=== PATIENT | male | born 1995 | race Caucasian/White ===

== ENCOUNTER 2018-12-31 16:40 | Emergency (ER) | payer OTHER ==
--- NOTE | 2018-12-31 16:47 | PDOC ---
Rapid Medical Evaluation Chief Complaint: Blood Pressure Problem Time Seen by Provider: 12/31/18 16:44 Medical Evaluation: Allergies Allergy/AdvReac Type Severity Reaction Status Date / Time No Known Allergies Allergy Verified 12/31/18 16:44 12/31/18 16:44 I have performed a brief in-person evaluation of this patient. The patient presents with a chief complaint of: SOB since Saturday, saw cards MD Reyes and put on holter monitor, told if he had any more issues to come to ED Pertinent physical exam findings: well appearing, VSS I have ordered the following: ekg, cxr The patient will proceed to the ED for further evaluation. \
[2018-12-31 16:48] VITALS: BMI 24.5
[2018-12-31 17:56] VITALS: BP 118/74; PULSE 77
--- NOTE | 2018-12-31 18:00 | PDOC ---
History of Present Illness - General Chief Complaint: Shortness of Breath Stated Complaint: HIGH BLOOD PRESURE Time Seen by Provider: 12/31/18 16:44 History Source: Patient Exam Limitations: No Limitations - History of Present Illness Initial Comments: 12/31/18 18:35 23 year old man with no past medical history who presents to the ED worsening L sided chest pain that has been ongoing for the past month and associated with shortness of breath, palpitations and dizziness. The patient reports that the symptosm worsen at night and when he lies back. He reports the last episode occurring just prior to arrival. He follows with Cardiology Dr. Reyes and was sent home with a Holter monitor with a follow up appointment tomorrow morning. The patient denies recent travel, coughing, brown or yellow phlegm, fevers, abdominal pain, dysuria, hematuria, diarrhea, constipation. Mother denies any complications at and notes patient was born full term in [facility] and did not require a hospital stay. Past History - Past Medical History Allergies/Adverse Reactions: Allergies Allergy/AdvReac Type Severity Reaction Status Date / Time No Known Allergies Allergy Verified 12/31/18 16:44 Home Medications: Ambulatory Orders NK [No Known Home Medication] 12/31/18 COPD: No - Surgical History Appendectomy: Yes - Immunization History Immunization Up to Date: Yes - Suicide/Smoking/Psychosocial Hx Smoking History: Never smoked Information on smoking cessation initiated: No Hx Alcohol Use: No Drug/Substance Use Hx: No Review of Systems - Review of Systems Able to Perform ROS?: Yes Comments:: 12/31/18 18:41 GENERAL/CONSTITUTIONAL: No fever or chills. No weakness. HEAD, EYES, EARS, NOSE AND THROAT: No change in vision. No ear pain or discharge. No sore throat. CARDIOVASCULAR: + chest pain or shortness of breath RESPIRATORY: No cough, wheezing, or hemoptysis. GASTROINTESTINAL: No nausea, vomiting, diarrhea or constipation. GENITOURINARY: No dysuria, frequency, or change in urination. MUSCULOSKELETAL: No joint or muscle swelling or pain. No neck or back pain. SKIN: No rash NEUROLOGIC: No headache, vertigo, loss of consciousness, or change in strength/ sensation. ENDOCRINE: No increased thirst. No abnormal weight change HEMATOLOGIC/LYMPHATIC: No anemia, easy bleeding, or history of blood clots. ALLERGIC/IMMUNOLOGIC: No hives or skin allergy. Is the patient limited Gambian proficient: No *Physical Exam - Vital Signs Last Vital Signs Temp Pulse Resp BP Pulse Ox 77 18 118/74 100 12/31/18 17:55 12/31/18 17:55 12/31/18 17:55 12/31/18 17:55 - Physical Exam Comments: 12/31/18 18:41 GENERAL: Awake, alert, and fully oriented, in no acute distress HEAD: No signs of trauma, normocephalic, atraumatic EYES: EOMI, sclera anicteric, conjunctiva clear ENT: oropharynx clear without exudates. Moist mucosa NECK: Normal ROM, supple LUNGS: No distress, speaks full sentences, clear to auscultation bilaterally HEART: Regular rate and rhythm, normal S1 and S2, no murmurs, rubs or gallops, peripheral pulses normal and equal bilaterally. ABDOMEN: Soft, nontender, normoactive bowel sounds. No guarding, no rebound. No masses EXTREMITIES : Normal inspection, Normal range of motion, no edema. No clubbing or cyanosis. NEUROLOGICAL: Cranial nerves II through XII grossly intact. Normal speech, no focal sensorimotor deficits SKIN: Warm, Dry, normal turgor, no rashes or lesions noted ED Treatment Course - LABORATORY CBC & Chemistry Diagram: 12/31/18 18:34 12/31/18 18:34 Medical Decision Making - Medical Decision Making 12/31/18 18:39 23 year old man with no past medical history who presents to the ED worsening L sided chest pain that has been ongoing for the past month and associated with shortness of breath, palpitations and dizziness. The patient reports that the symptosm worsen at night and when he lies back. He reports the last episode occurring just prior to arrival. He follows with Cardiology Dr. Reyes and was sent home with a Holter monitor with a follow up appointment tomorrow morning. The patient denies recent travel, coughing, brown or yellow phlegm, fevers, abdominal pain, dysuria, hematuria, diarrhea, constipation. Mother denies any complications at and notes patient was born full term in [facility] and did not require a hospital stay. ED Course: consider arrythmia vs anxiety vs hyperthyroid less liekly acs will r/o cbc, cmp, trop ekg, cxr EKG: normal sinus rhythm HR 59, no interval abnormalities, narrow QRS, ST and T wave segments and morphology normal. Shira Neil, PGY1 Emergency Medicine
[2018-12-31 18:44] LABS: BASO % 1.1 % (0-2.0); EOS % 1.7 % (0-4.5); HEMATOCRIT 47.3 % (35.4-49); HEMOGLOBIN 15.5 GM/dL (11.7-16.9); LYMPH % 45.6 % (8-40); MCH 28.6 pg (25.7-33.7); MCHC 32.8 g/dl (32.0-35.9); MEAN CELL VOLUME 87.1 fl (80-96); MEAN PLT VOLUME 8.7 fl (7.5-11.1); NEUT % 44.6 % (42.8-82.8); PLATELET COUNT 248 K/MM3 (134-434); RBC 5.43 M/mm3 (4.00-5.60); RDW 13.7 % (11.9-15.9); WHITE BLOOD COUNT 4.7 K/mm3 (4.0-10.0)
--- NOTE | 2018-12-31 19:06 | PDOC ---
Documentation entered by Carrie Durand SCRIBE, acting as scribe for Aida Ramirez DO. Aida Ramirez DO: This documentation has been prepared by the Kizzy crook Daisy, SCRIBE, under my direction and personally reviewed by me in its entirety. I confirm that the documentation accurately reflects all work, treatment, procedures, and medical decision making performed by me. Attending Attestation - Resident Resident Name: UlisespeeweedionneShira - ED Attending Attestation I have performed the following: I have examined & evaluated the patient, The case was reviewed & discussed with the resident, I agree w/resident's findings & plan - HPI HPI: 12/31/18 18:27 The patient is a 23 YOM with no PMH who presents to the ED for left sided chest pain. He reports the chest pain is sharp, localized in the left side of his chest, nonradiating, intermittent, and occurs at rest. He reports the chest pain makes him intermittently short of breath and dizzy. Denies worsening chest pain with deep inspiration. Patient has seen cardiology in the past and has a follow-up appointment tomorrow. Denies fever, chills, N/V/D/C, urinary symptoms. Allergies: NKDA Cardiology: Dr. Reyes - Physicial Exam PE: 12/31/18 18:30 ADULT PHYSICAL EXAM Constitutional: Awake, alert, oriented. No acute distress. Neck: Supple. Full ROM. No lymphadenopathy. Cardiovascular: Regular rate. Regular rhythm. S1, S2 regular. Distal pulses are 2+ and symmetric. Pulmonary/Chest: No evidence of respiratory distress. Clear to auscultation bilaterally No wheezing, rales or rhonchi. Abdominal: Soft and non-distended. There is no tenderness. No rebound, guarding or rigidity. Musculoskeletal: No edema. No cyanosis. No clubbing. Full range of motion in all extremities. No calf tenderness. Skin: Skin is warm and dry. Neurological: No focal deficits. - Medical Decision Making 12/31/18 19:03 I, Dr. Aida Ramirez DO, attest that this document has been prepared under my direction and personally reviewed by me in its entirety. I further attest, that it accurately reflects all work, treatment, procedures and medical decision -making performed by me. 12/31/18 19:03 a/p: 23yo male with 1m hx of intermittent episodes of cp -scheduled to see Dr. Reyes tomorrow for a halter -cp assoc with sob/palp -no pleuritic component -PERC neg -pt denies pain at this time -cxr clear -ekg nonacute -will send labs, tsh -most likely dc home with cards follow up tomorrow 12/31/18 19:28 trop negative tsh normal discussed labs, ekg, cxr with pt and his mother cp free stable for dc to home and follow up with cards in the am *DC/Admit/Observation/Transfer Diagnosis at time of Disposition: Palpitation, Atypical chest pain - Discharge Dispostion Disposition: HOME Condition at time of disposition: Stable Decision to Admit order: No - Referrals Referrals: Haseeb Reyes MD [Staff Physician] - - Patient Instructions Printed Discharge Instructions: DI for Palpitations, DI for Atypical Chest Pain Additional Instructions: Please follow up with Dr. Reyes in the AM as scheduled. Please return to the ED with any further concerns or complaints. - Post Discharge Activity Heart Score/ECG Review - ECG Intrepretation Comment:: 12/31/18 19:05 sinus vitor at 59, nl axis, nl interval, no acute st/t wave findings
--- NOTE | 2018-12-31 19:09 | PDOC ---
*Physical Exam - Vital Signs Last Vital Signs Temp Pulse Resp BP Pulse Ox 77 18 118/74 100 12/31/18 17:55 12/31/18 17:55 12/31/18 17:55 12/31/18 18:34 ED Treatment Course - LABORATORY CBC & Chemistry Diagram: 12/31/18 18:34 12/31/18 18:34 - ADDITIONAL ORDERS Additional order review: 12/31/18 18:34 RBC 5.43 MCV 87.1 MCHC 32.8 RDW 13.7 MPV 8.7 Neutrophils % 44.6 Lymphocytes % 45.6 H Monocytes % 7.0 Eosinophils % 1.7 Basophils % 1.1
[2018-12-31 19:18] LABS: ALK PHOS 54 U/L (45-117); ANION GAP 5 MMOL/L (8-16); BILIRUBIN,TOTAL 0.3 mg/dL (0.2-1); BLOOD UREA NITROGEN 11 mg/dL (7-18); CHLORIDE 106 mmol/L (98-107); CO2 28 mmol/L (21-32); CREATININE 1.1 mg/dL (0.55-1.3); GLUCOSE,RANDOM 84 mg/dL (74-106); SGOT/AST 22 U/L (15-37); SGPT/ALT 39 U/L (13-61); SODIUM 139 mmol/L (136-145); TOT PROT 7.7 g/dl (6.4-8.2)
--- NOTE | 2019-01-01 13:14 | EKG ---
Test Reason : Blood Pressure : / mmHG Vent. Rate : 059 BPM Atrial Rate : 059 BPM P-R Int : 148 ms QRS Dur : 090 ms QT Int : 376 ms P-R-T Axes : 063 064 043 degrees QTc Int : 372 ms SINUS BRADYCARDIA OTHERWISE NORMAL ECG WHEN COMPARED WITH ECG OF 19-MAR-2016 13:21, NO SIGNIFICANT CHANGE WAS FOUND Confirmed by SELINA SRINIVASAN MD ([id number]) on 01/01/2019 1:14:27 PM Referred By: Confirmed By:SELINA SRINIVASAN MD
== END 2018-12-31 19:45 | disposition home or self-care (01) ==
LOC: JER 16:40
DX: R07.9 Chest pain, unspecified (principal); R00.2 Palpitations
CPT/HCPCS: 36415; 71046-TC-FY; 80053; 84443; 84484; 85025; 93005; 93010; 99283-25

== ENCOUNTER 2019-01-12 18:03 | Emergency (ER) | payer OTHER ==
[2019-01-12 18:27] VITALS: BP 131/85; PULSE 75; TEMP 98.6; BMI 25.2
--- NOTE | 2019-01-12 18:27 | PDOC ---
Rapid Medical Evaluation Chief Complaint: Palpitations Time Seen by Provider: 01/12/19 18:25 Medical Evaluation: Allergies Allergy/AdvReac Type Severity Reaction Status Date / Time No Known Allergies Allergy Verified 12/31/18 16:44 Vital Signs Temp Pulse Resp BP Pulse Ox 98.6 F 75 20 131/85 100 01/12/19 18:22 01/12/19 18:22 01/12/19 18:22 01/12/19 18:22 01/12/19 18:22 01/12/19 18:25 cc; palpitations intermittently x 2 days + weakness and dizziness at present Pe: nad unlabored breathing heart s1s2 order ekg This patient will proceed to ed for further evaluation Discharge Disposition - Diagnosis Palpitation - Discharge Dispostion Condition at time of disposition: Stable - Referrals - Patient Instructions - Post Discharge Activity
--- NOTE | 2019-01-12 19:24 | PDOC ---
*Physical Exam - Vital Signs Last Vital Signs Temp Pulse Resp BP Pulse Ox 98.6 F 75 20 131/85 100 01/12/19 18:22 01/12/19 18:22 01/12/19 18:22 01/12/19 18:22 01/12/19 18:22 ED Treatment Course - LABORATORY CBC & Chemistry Diagram: 01/12/19 19:45 01/12/19 19:30 Medical Decision Making - Medical Decision Making 01/12/19 19:24 Patient seen by the advanced practice provider under my direct supervision. Ancillary testing reviewed as necessary. I agree with plan as outlined by the advanced practice provider. *DC/Admit/Observation/Transfer Diagnosis at time of Disposition: Palpitation - Discharge Dispostion Condition at time of disposition: Stable - Referrals Referrals: Nicolle Sanchez [Primary Care Provider] - - Patient Instructions - Post Discharge Activity
[2019-01-12] MEDS ORDERED: SODIUM CHLORIDE 1,000 ML IV STA (19:31)
--- NOTE | 2019-01-12 19:37 | PDOC ---
History of Present Illness - General Chief Complaint: Palpitations Stated Complaint: CHEST PAIN Time Seen by Provider: 01/12/19 18:25 History Source: Patient Exam Limitations: No Limitations - History of Present Illness Initial Comments: 01/12/19 19:33 HISTORY OF PRESENT ILLNESS: 23-year-old male presents emergency department for evaluation of palpitations which have been intermittent since 01/09. Patient reports alcohol intake over this weekend and the symptoms had resolved. Palpitations returned again approximate 4:00 this morning which woke the patient from sleep. Patient reported symptoms resolve when he went to work started eating and drinking fluids. While at work he felt fine and his symptoms improved after excessive hydration. I present patient denies any chest pain, palpitations, shortness of breath, dizziness, lightheadedness, nausea, vomiting or abdominal pain. No recent travel or sick contacts. PAST MEDICAL HISTORY: Denies past medical history SURGICAL HISTORY: Denies ALLERGIES: No known drug allergies REVIEW OF SYSTEMS General/Constitutional: Denies fever or chills. Denies weakness, weight change. HEENT: Denies change in vision. Denies ear pain or discharge. Denies sore throat. Cardiovascular: see HPI Respiratory: Denies cough, wheezing, or hemoptysis. Gastrointestinal: Denies nausea, vomiting, diarrhea or constipation. Denies rectal bleeding. Genitourinary: Denies dysuria, frequency, or change in urination. Musculoskeletal: Denies joint or muscle swelling or pain. Denies neck or back pain. Skin and breasts: Denies rash or easy bruising. Neurologic: Denies headache, vertigo, loss of consciousness, or loss of sensation. Psychiatric: Denies depression or anxiety. Endocrine: Denies increased thirst. Denies abnormal weight change. Hematologic/Lymphatic: Denies anemia, easy bleeding, or history of blood clots. Allergic/Immunologic: Denies hives or skin allergy. Denies latex allergy. PHYSICAL EXAM General Appearance: Well-appearing, appropriately dressed. No apparent distress , no intoxication. HEENT: EOMI, PERRLA, normal ENT inspection, normal voice, TMs normal, pharynx normal. No conjunctival pallor. No photophobia, scleral icterus. Neck: Supple. Trachea midline. No tenderness, rigidity, carotid bruit, stridor , lymphadenopathy, or thyromegaly. Respiratory/Chest: Lungs CTAB. No shortness of breath, chest tenderness, respiratory distress, accessory muscle use. No crackles, rales, rhonchi, stridor , wheezing, dullness Cardiovascular: RRR. S1, S2. No JVD, murmur, bradycardia, tachycardia. Vascular Pulses: Dorsalis-Pedis (R): 2+, Dorsalis-Pedis (L): 2+ Gastrointestinal/Abdominal: Normal bowel sounds. Abdomen soft, non-distended. No tenderness or rebound tenderness. No organomegaly, pulsatile mass, guarding, hernia, hepatomegaly, splenomegaly. Lymphatic: No adenopathy, tenderness. Musculoskeletal/Extremities: Normal inspection. FROM of all extremities, normal capillary refill. Pelvis Stable. No CVA tenderness. No tenderness to extremities, pedal edema, swelling, erythema or deformity. Integumentary: Appropriate color, dry, warm. No cyanosis, erythema, jaundice or rash Neurologic: transportation logistics internship II-XII intact. Fully oriented, alert. Appropriate mood/affect. Motor strength 5/5. No appreciable EOM palsy, facial droop or sensory deficit. Past History - Past Medical History Allergies/Adverse Reactions: Allergies Allergy/AdvReac Type Severity Reaction Status Date / Time No Known Allergies Allergy Verified 12/31/18 16:44 Home Medications: Ambulatory Orders NK [No Known Home Medication] 12/31/18 COPD: No - Surgical History Abdominal Surgery: Yes Appendectomy: Yes - Immunization History Immunization Up to Date: Yes - Suicide/Smoking/Psychosocial Hx Smoking History: Current some day smoker Have you smoked in the past 12 months: Yes Information on smoking cessation initiated: No Hx Alcohol Use: No Drug/Substance Use Hx: No *Physical Exam - Vital Signs Last Vital Signs Temp Pulse Resp BP Pulse Ox 98.6 F 75 20 131/85 100 01/12/19 18:22 01/12/19 18:22 01/12/19 18:22 01/12/19 18:22 01/12/19 18:22 ED Treatment Course - LABORATORY CBC & Chemistry Diagram: 01/12/19 19:45 01/12/19 19:30 - RADIOLOGY Radiology Studies Ordered: Category Date Time Status CHEST PA & LAT [RAD] Stat Radiology 01/12/19 19:31 Ordered Medical Decision Making - Medical Decision Making 01/12/19 19:34 A/P: 23-year-old male with intermittent resolved palpitations for 3 days Physical exam is within normal limits Differential diagnosis includes but is not limited to- ACS, arrhythmia, hypoglycemia, electrolyte imbalance, thyroid dysfunction, toxicology, occult infection. Pulmonary embolism is less likely as patient has a PERC score of 0. Labs included cardiac profile and is TSH Urine including toxicology CXR Normal saline 1 L bolus EKG performed in rapid medical evaluation reveals sinus rhythm with rate of 69. Normal intervals present. Normal axis noted. No ST depressions or elevations present. 01/12/19 22:16 CBC is unremarkable Chemistry is remarkable for TSH of 4.13. Free T4 is 1.01. Likely subclinical. Cardiac enzymes are negative. Urinalysis is negative Chest x-rays read by me: No acute pathology present. No significant change from study performed on 12/31/18. I will discharge the patient home to follow-up with [facility] internal medicine group. I discussed the physical exam findings, ancillary test results and final diagnoses with the patient. I answered all of the patient's questions. The patient was satisfied with the care received and felt comfortable with the discharge plan and treatment plan. The patient will call their primary care physician within 24 hours to arrange follow-up and will return to the Emergency Department with any new, persistent or worsening symptoms. *DC/Admit/Observation/Transfer Diagnosis at time of Disposition: Palpitation - Discharge Dispostion Disposition: HOME Condition at time of disposition: Stable Decision to Admit order: No - Referrals Referrals: Nicolle Sanchez [Primary Care Provider] - - Patient Instructions Additional Instructions: Your TSH was 4.13. Your T4 is 1.01. Keep well-hydrated Eat a well-balanced diet. Your emergency department visit is incomplete until you follow up with your primary doctor with your doctor. Return to the emergency department for any new or worsening symptoms. Thank you very much for choosing us to provide written emergent health care needs. - Post Discharge Activity
[2019-01-12 20:07] LABS: BASO % 0.9 % (0-2.0); EOS % 0.9 % (0-4.5); HEMATOCRIT 48.1 % (35.4-49); LYMPH % 27.3 % (8-40); MCH 28.7 pg (25.7-33.7); MCHC 33.3 g/dl (32.0-35.9); MEAN CELL VOLUME 86.2 fl (80-96); MEAN PLT VOLUME 9.4 fl (7.5-11.1); MONO % 8.5 % (3.8-10.2); NEUT % 62.4 % (42.8-82.8); PLATELET COUNT 248 K/MM3 (134-434); RBC 5.58 M/mm3 (4.00-5.60); RDW 13.5 % (11.9-15.9); WHITE BLOOD COUNT 5.2 K/mm3 (4.0-10.0)
[2019-01-12 20:27] LABS: URINE APPEARANCE CLEAR; URINE BILIRUBIN NEGATIVE (NEGATIVE); URINE COLOR YELLOW; URINE GLUCOSE (UA) NEGATIVE (NEGATIVE); URINE KETONE NEGATIVE (NEGATIVE); URINE LEUK ESTERASE NEGATIVE (NEGATIVE); URINE NITRITE NEGATIVE (NEGATIVE); URINE PROTEIN NEGATIVE (NEGATIVE); URINE UROBILINOGEN 0.2 mg/dL (0.2-1.0)
[2019-01-12 20:43] LABS: ALBUMIN 4.4 g/dl (3.4-5.0); ALK PHOS 63 U/L (45-117); ANION GAP 7 MMOL/L (8-16); BILIRUBIN,TOTAL 0.3 mg/dL (0.2-1); BLOOD UREA NITROGEN 18 mg/dL (7-18); CALCIUM 9.3 mg/dL (8.5-10.1); CHLORIDE 104 mmol/L (98-107); CO2 28 mmol/L (21-32); CREATININE 1.3 mg/dL (0.55-1.3); GLUCOSE,RANDOM 94 mg/dL (74-106); MAGNESIUM 2.3 mg/dL (1.8-2.4); POTASSIUM 4.5 mmol/L (3.5-5.1); SGOT/AST 20 U/L (15-37); SGPT/ALT 31 U/L (13-61); SODIUM 138 mmol/L (136-145); TOT PROT 8.5 g/dl (6.4-8.2)
[2019-01-12 21:34] LABS: COCAINE, UR NEGATIVE ng/ml (CUTOFF=300); METHADONE, UR NEGATIVE ng/ml (CUTOFF=300); OPIATES, URI NEGATIVE ng/ml (CUTOFF=300); PHENCYCLIDINE,URINE NEGATIVE ng/ml (CUTOFF=25); URINE AMPHETAMINES NEGATIVE ng/ml (CUTOFF=500); URINE BARBITURATES NEGATIVE ng/ml (CUTOFF=200); URINE BENZODIAZEPINES NEGATIVE ng/ml (CUTOFF=200)
--- NOTE | 2019-01-13 10:02 | EKG ---
Test Reason : Blood Pressure : / mmHG Vent. Rate : 069 BPM Atrial Rate : 069 BPM P-R Int : 144 ms QRS Dur : 092 ms QT Int : 376 ms P-R-T Axes : 070 059 022 degrees QTc Int : 402 ms NORMAL SINUS RHYTHM MINIMAL VOLTAGE CRITERIA FOR LVH, MAY BE NORMAL VARIANT BORDERLINE ECG WHEN COMPARED WITH ECG OF 31-DEC-2018 16:51, NO SIGNIFICANT CHANGE WAS FOUND Confirmed by MD VENANCIO, SAURABH ([id number]) on 01/13/2019 10:01:26 AM Referred By: Confirmed By:SAURABH CRFAT MD
== END 2019-01-12 22:25 | disposition home or self-care (01) ==
LOC: JER 18:03
PROC: 3E0337Z Introduction of Electrolytic and Water Balance Substance into Peripheral Vein, Percutaneous Approach (ICD-10-PCS; principal; 2019-01-12)
DX: R00.2 Palpitations (principal)
CPT/HCPCS: 36415; 71046-TC-FY; 80053; 80307; 81003; 82550; 82553; 83735; 84439; 84443; 84481; 84484; 85025; 93005; 93010; 96360; 99283-25; J7030

== ENCOUNTER 2019-01-27 21:18 | Emergency (ER) | payer OTHER ==
--- NOTE | 2019-01-27 21:25 | PDOC ---
Rapid Medical Evaluation Time Seen by Provider: 01/27/19 21:21 Medical Evaluation: Allergies Allergy/AdvReac Type Severity Reaction Status Date / Time No Known Allergies Allergy Verified 12/31/18 16:44 01/27/19 21:22 Pt c/o: headache, tired, no strength, seen her x 3 for the same Pt on brief exam: vss, lcta, rrr Pt ordered for: labs ( tsh also elevated on prev visit) Pt to proceed to the ED Discharge Disposition - Diagnosis Headache - Referrals - Patient Instructions - Post Discharge Activity
[2019-01-27 21:27] VITALS: BP 136/90; PULSE 63; TEMP 98.3; BMI 23.8
[2019-01-27] MEDS ORDERED: KETOROLAC TROMETHAMINE 60 MG/2 ML VIAL IM ONE (21:27)
[2019-01-27] MEDS ORDERED: KETOROLAC TROMETHAMINE 60 MG/2 ML VIAL ONE ×2 (21:30→22:19)
[2019-01-27 21:52] LABS: EOS % 1.7 % (0-4.5); HEMATOCRIT 45.2 % (35.4-49); HEMOGLOBIN 15.5 GM/dL (11.7-16.9); LYMPH % 54.7 % (8-40); MCH 29.2 pg (25.7-33.7); MCHC 34.4 g/dl (32.0-35.9); MEAN CELL VOLUME 84.9 fl (80-96); MEAN PLT VOLUME 8.4 fl (7.5-11.1); MONO % 7.2 % (3.8-10.2); NEUT % 35.4 % (42.8-82.8); PLATELET COUNT 217 K/MM3 (134-434); RBC 5.32 M/mm3 (4.00-5.60); RDW 13.2 % (11.9-15.9); WHITE BLOOD COUNT 6.4 K/mm3 (4.0-10.0)
[2019-01-27] MEDS ORDERED: ACETAMINOPHEN 500 MG TABLET (FP) PO STA (22:18)
[2019-01-27] MEDS ORDERED: ACETAMINOPHEN 325 MG TABLET (FP) ONE (22:34)
[2019-01-27 22:37] LABS: ALBUMIN 4.5 g/dl (3.4-5.0); ALK PHOS 63 U/L (45-117); ANION GAP 9 MMOL/L (8-16); BILIRUBIN,TOTAL 0.2 mg/dL (0.2-1); BLOOD UREA NITROGEN 18.8 mg/dL (7-18); CALCIUM 9.1 mg/dL (8.5-10.1); CHLORIDE 104 mmol/L (98-107); CO2 25 mmol/L (21-32); CREATININE 1.3 mg/dL (0.55-1.3); GLUCOSE,RANDOM 98 mg/dL (74-106); POTASSIUM 3.5 mmol/L (3.5-5.1); SGOT/AST 18 U/L (15-37); SGPT/ALT 31 U/L (13-61); SODIUM 138 mmol/L (136-145); TOT PROT 8.2 g/dl (6.4-8.2)
--- NOTE | 2019-01-27 23:38 | PDOC ---
Documentation entered by Denisse Wilson SCRIBE, acting as scribe for Karine Flowers MD. Karine Flowers MD: This documentation has been prepared by the Katie crook Brenda, SCRIBE, under my direction and personally reviewed by me in its entirety. I confirm that the documentation accurately reflects all work, treatment, procedures, and medical decision making performed by me. History of Present Illness - General Chief Complaint: Lightheaded Stated Complaint: DIZZY/LIGHT HEADED Time Seen by Provider: 01/27/19 21:21 History Source: Patient Exam Limitations: Language Barrier - History of Present Illness Initial Comments: 01/27/19 23:00 The patient is a 23 year old male, portuguese-speaker, with no significant PMH who presents to the emergency department with4 months of a head pressure accompanied with blurry vision. The patient reports feeling intermittent head pressure, mostly while at work, which causes vision blurriness. He also notes rapid palpitations. Patient states seeing his PCP on Saturday, who reported that his heart was good, and did not check his head pressure or vision. The patient also notes a cyst on the back of his scalp. The patient notes being prescribed an unknown anxiety medication, which he is noncompliant with due to not feeling a need. motor vehicle parts interpreter was used ([id number]). The patient denies stress and any past medical history. Denes chest pain, shortness of breath and headaches. Denies fever, chills, nausea, vomiting, diarrhea and constipation. Denies dysuria, frequency, urgency and hematuria. Allergies: NKA Surgical History: Appendectomy PCP: Ted Main Past History - Past Medical History Allergies/Adverse Reactions: Allergies Allergy/AdvReac Type Severity Reaction Status Date / Time No Known Allergies Allergy Verified 12/31/18 16:44 Home Medications: Ambulatory Orders NK [No Known Home Medication] 12/31/18 COPD: No - Surgical History Appendectomy: Yes - Immunization History Immunization Up to Date: Yes - Suicide/Smoking/Psychosocial Hx Smoking History: Never smoked Have you smoked in the past 12 months: No Information on smoking cessation initiated: No Hx Alcohol Use: No Drug/Substance Use Hx: No Review of Systems - Review of Systems Able to Perform ROS?: Yes Comments:: 01/27/19 23:00 CONSTITUTIONAL: Absent: fever, chills, diaphoresis, generalized weakness, malaise, loss of appetite HEENT: + Visual changes (blurry vision) Absent: rhinorrhea, nasal congestion, throat pain, throat swelling, difficulty swallowing, mouth swelling, ear pain. CARDIOVASCULAR: +Palpitations + headache Absent: chest pain, syncope, peripheral edema RESPIRATORY: Absent: cough, shortness of breath, dyspnea with exertion, orthopnea, wheezing, stridor, hemoptysis GASTROINTESTINAL: Absent: abdominal pain, abdominal distension, nausea, vomiting, diarrhea, constipation, melena, hematochezia GENITOURINARY: Absent: dysuria, frequency, urgency, hesitancy, hematuria, flank pain, genital pain MUSCULOSKELETAL: Absent: myalgia, arthralgia, joint swelling SKIN: Absent: rash, itching, pallor HEMATOLOGIC/IMMUNOLOGIC: Absent: easy bleeding, easy bruising, lymphadenopathy, frequent infections ENDOCRINE: Absent: unexplained weight gain, unexplained weight loss, heat intolerance, cold intolerance NEUROLOGIC: Absent: headache, focal weakness or paresthesias, dizziness, unsteady gait, seizure, mental status changes, bladder or bowel incontinence PSYCHIATRIC: Absent: anxiety, depression, suicidal or homicidal ideation, hallucinations. *Physical Exam - Vital Signs Last Vital Signs Temp Pulse Resp BP Pulse Ox 98.3 F 63 20 136/90 99 01/27/19 21:22 01/27/19 21:22 01/27/19 21:22 01/27/19 21:22 01/27/19 21:22 - Physical Exam Comments: 01/27/19 23:00 GENERAL: Well developed, well nourished. Awake and alert. No acute distress. HEENT: Normocephalic, atraumatic. PERRLA, EOMI. No conjunctival pallor. Sclera are non- icteric. Moist mucous membranes. Oropharynx is clear. NECK: Supple. Full ROM. No JVD. Carotid pulses 2+ and symmetric, without bruits. No thyromegaly. No lymphadenopathy. CARDIOVASCULAR: Regular rate and rhythm. No murmurs, rubs, or gallops. Distal pulses are 2+ and symmetric. PULMONARY: No evidence of respiratory distress. Lungs clear to auscultation bilaterally. No wheezing, rales or rhonchi. ABDOMINAL: Soft. Non-tender. Non-distended. No rebound or guarding. No organomegaly. Normoactive bowel sounds. MUSCULOSKELETAL Normal range of motion at all joints. No bony deformities or tenderness. No CVA tenderness. EXTREMITIES: No cyanosis. No clubbing. No edema. No calf tenderness. SKIN: Warm and dry. Normal capillary refill. No rashes. No jaundice. NEUROLOGICAL: Alert, awake, appropriate. Cranial nerves 2-12 intact. No deficits to light touch and temperature in face, upper extremities and lower extremities. No motor deficits in the face, upper extremities and lower extremities. Normoreflexic in the upper and lower extremities. Normal speech. Toes are down- going bilaterally. Gait is normal without ataxia. PSYCHIATRIC: Cooperative. Good eye contact. Appropriate mood and affect. ED Treatment Course - LABORATORY CBC & Chemistry Diagram: 01/27/19 21:37 01/27/19 21:37 - ADDITIONAL ORDERS Additional order review: 01/27/19 21:37 RBC 5.32 MCV 84.9 MCHC 34.4 RDW 13.2 MPV 8.4 D Neutrophils % 35.4 L D Lymphocytes % 54.7 H D Monocytes % 7.2 Eosinophils % 1.7 D Basophils % 1.0 - RADIOLOGY Radiology Studies Ordered: Category Date Time Status HEAD CT WITHOUT CONTRAST [CT] Stat CT Scan 01/27/19 22:36 Ordered - Medications Given in the ED: ED Medications Discontinued Medications Generic Name Dose Route Start Last Admin Trade Name Lara PRN Reason Stop Dose Admin Acetaminophen 975 mg 01/27/19 22:18 01/27/19 22:41 Tylenol - PO 01/27/19 22:19 975 mg ONCE STA Administration Ketorolac Tromethamine 60 mg 01/27/19 21:27 01/27/19 22:40 Toradol Injection - IM 01/27/19 21:28 60 mg ONCE ONE Administration Medical Decision Making - Medical Decision Making 01/27/19 22:46 23-year-old male presents with several complaints. He has been here on December 31 in January 12 for similar complaints. He presents with concerns of intermittent headache for the past 4 months and also intermittent palpitations. He's had negative workups on his prior visits. History of present illness he did see his primary care provider on Saturday and but at that time was just prescribed medications for anxiety. He did not bring up a request for a Holter monitor at that time nor did he talk about his chronic intermittent headaches with his doctor. -his PCP is Dr Ted Main Chest x-rays done on December 31 and January 12 showed a normal cardiac silhouette, no infiltrates, no effusions, no masses, no bony abnormalities and no hilar adenopathy. CBCs have been normal with no anemia or leukocytosis. His glucose and renal function and electrolytes have been normal. His troponin has been negative on previous visits. -an elevated TSH was noted on January 12 visit but his freeT3 and freeT4 were within normal range 01/27/19 23:32 CAT scan of the head was done because of this intermittent no intermittent headache for 4 months. CAT scan of the head was negative for any acute intracranial pathology. At this time. He does not have any significant headache and will be discharged home with neurology follow-up. Findings also discussed with his mother accompanied him to the emergency department IMP; palpitations/new intermittent headache for 4 months *DC/Admit/Observation/Transfer Diagnosis at time of Disposition: Palpitation Headache Qualifiers: Headache type: tension-type Headache chronicity pattern: episodic headache Intractability: not intractable Qualified Code(s): G44.219 - Episodic tension- type headache, not intractable - Discharge Dispostion Disposition: HOME Condition at time of disposition: Stable - Referrals Referrals: Ted Main MD [Primary Care Provider] - Willie Hernández MD [Staff Physician] - - Patient Instructions Printed Discharge Instructions: DI for Hormonal and Tension Headaches, DI for Palpitations Additional Instructions: please call your doctor for follow up and tell him about your headaches and palpitations You have been given the name of a neurologist to call and make an appointment for your headaches - Post Discharge Activity
--- NOTE | 2019-01-28 08:08 | EKG ---
Test Reason : Blood Pressure : / mmHG Vent. Rate : 061 BPM Atrial Rate : 061 BPM P-R Int : 160 ms QRS Dur : 100 ms QT Int : 390 ms P-R-T Axes : 042 051 020 degrees QTc Int : 392 ms NORMAL SINUS RHYTHM NORMAL ECG WHEN COMPARED WITH ECG OF 12-JAN-2019 17:56, NO SIGNIFICANT CHANGE WAS FOUND Confirmed by ROLA COLIN MD ([id number]) on 01/28/2019 8:07:36 AM Referred By: Confirmed By:ROLA COLIN MD
== END 2019-01-27 23:51 | disposition home or self-care (01) ==
LOC: JER 21:18
PROC: 3E0233Z Introduction of Anti-inflammatory into Muscle, Percutaneous Approach (ICD-10-PCS; principal; 2019-01-27)
DX: G44.219 Episodic tension-type headache, not intractable (principal); R00.2 Palpitations
CPT/HCPCS: 36415; 70450-TC; 80053; 84443; 84484; 85025; 93005; 93010; 96372; 99281-25

== ENCOUNTER 2019-09-17 18:36 | Emergency (ER) | payer OTHER ==
--- NOTE | 2019-09-17 18:51 | PDOC ---
Rapid Medical Evaluation Chief Complaint: Pain, Acute Time Seen by Provider: 09/17/19 18:46 Medical Evaluation: Allergies Allergy/AdvReac Type Severity Reaction Status Date / Time No Known Allergies Allergy Verified 12/31/18 16:44 09/17/19 18:47 I have performed a brief in-person evaluation of this patient. The patient presents with a chief complaint of:abdomenal pain x 1 month , worse over past 3 days. No N/V/ Fevers Pertinent physical exam findings: abd soft/ nontender. I have ordered the following: nothing The patient will proceed to the ED for further evaluation. Discharge Disposition - Diagnosis Abdominal pain - Discharge Dispostion Condition at time of disposition: Stable - Referrals - Patient Instructions - Post Discharge Activity
[2019-09-17 18:55] VITALS: BMI 25.7
[2019-09-17] MEDS ORDERED: ONDANSETRON 4 MG/2 ML VIAL IVPUSH ONE (19:32)
[2019-09-17] MEDS ORDERED: SODIUM CHLORIDE 1,000 ML IV STA (19:32)
[2019-09-17] MEDS ORDERED: ONDANSETRON 4 MG/2 ML VIAL ONE (20:20)
--- NOTE | 2019-09-17 20:26 | PDOC ---
History of Present Illness - General Chief Complaint: Pain, Acute Stated Complaint: ABD PAIN Time Seen by Provider: 09/17/19 18:46 History Source: Patient, Old Records Exam Limitations: No Limitations - History of Present Illness Travel History: No Initial Comments: 09/17/19 20:21 HISTORY OF PRESENT ILLNESS: 24-year-old male presents emergency department for evaluation of intermittent abdominal pain over the past 30 days. Patient reports the pain is epigastric in location. Patient is unable to describe quality of the pain but reports that the pain is "bad." Reports having intermittent nausea and is reporting retching at home. He had nonbilious nonbloody vomiting earlier today but has not vomited since coming to the hospital. He denies any chest pain, shortness of breath, dysuria, hematuria, flank pain, constipation or diarrhea. Patient reports he has not had alcohol since January 2019 secondary to some epigastric pain he had at that time. No recent travel or sick contacts. PAST MEDICAL HISTORY: Denies past medical history SURGICAL HISTORY: Denies ALLERGIES: No known drug allergies REVIEW OF SYSTEMS General/Constitutional: Denies fever or chills. Denies weakness, weight change. HEENT: Denies change in vision. Denies ear pain or discharge. Denies sore throat. Cardiovascular: Denies chest pain or shortness of breath. Respiratory: Denies cough, wheezing, or hemoptysis. Gastrointestinal: See HPI Genitourinary: Denies dysuria, frequency, or change in urination. Musculoskeletal: Denies joint or muscle swelling or pain. Denies neck or back pain. Skin and breasts: Denies rash or easy bruising. Neurologic: Denies headache, vertigo, loss of consciousness, or loss of sensation. Psychiatric: Denies depression or anxiety. Endocrine: Denies increased thirst. Denies abnormal weight change. Hematologic/Lymphatic: Denies anemia, easy bleeding, or history of blood clots. Allergic/Immunologic: Denies hives or skin allergy. Denies latex allergy. PHYSICAL EXAM General Appearance: Well-appearing, appropriately dressed. No apparent distress , no intoxication. Respiratory/Chest: Lungs CTAB. No shortness of breath, chest tenderness, respiratory distress, accessory muscle use. No crackles, rales, rhonchi, stridor , wheezing, dullness Cardiovascular: RRR. S1, S2. No JVD, murmur, bradycardia, tachycardia. Vascular Pulses: Dorsalis-Pedis (R): 2+, Dorsalis-Pedis (L): 2+ Gastrointestinal/Abdominal: Normal bowel sounds. Abdomen soft, non-distended. No tenderness or rebound tenderness. No organomegaly, pulsatile mass, guarding, hernia, hepatomegaly, splenomegaly. 09/17/19 20:22 Past History - Past Medical History Allergies/Adverse Reactions: Allergies Allergy/AdvReac Type Severity Reaction Status Date / Time No Known Allergies Allergy Verified 09/17/19 19:48 Home Medications: Ambulatory Orders NK [No Known Home Medication] 12/31/18 COPD: No - Surgical History Abdominal Surgery: Yes Appendectomy: Yes - Immunization History Immunization Up to Date: Yes - Psycho Social/Smoking Cessation Hx Smoking History: Never smoked Have you smoked in the past 12 months: No Information on smoking cessation initiated: No Hx Alcohol Use: No Drug/Substance Use Hx: No *Physical Exam - Vital Signs Last Vital Signs Temp Pulse Resp BP Pulse Ox 98.4 F 72 18 113/65 98 09/17/19 18:46 09/17/19 18:46 09/17/19 18:46 09/17/19 18:46 09/17/19 18:46 ED Treatment Course - LABORATORY CBC & Chemistry Diagram: 09/17/19 20:30 09/17/19 20:30 Medical Decision Making - Medical Decision Making 09/17/19 20:24 A/P: 24-year-old male with epigastric pain for 1 month This patient has benign abdominal exam and symptoms been present for more than 1 month low likelihood of acute illness. Given normal exam possible ACS but given patient's age is low likelihood. Labs including cardiac profile and lipase Urinalysis EKG Normal saline 1 L IV bolus Zofran Reassess 09/17/19 21:51 Laboratory testing shows mildly elevated BUN/creatinine 25.0/1.4. Consistent with patient's baseline on previous visits as well as mildly elevated CK 338. As patient has been hydrated is currently feeling better, no further intervention is needed for this. EKG sinus rhythm with rate of 63. Normal intervals present with a QTC 397 ms. Normal axis. No ischemic changes noted. Patient is tolerating p.o.'s and is currently denying any pain. Discharge home I discussed the physical exam findings, ancillary test results and final diagnoses with the patient. I answered all of the patient's questions. The patient was satisfied with the care received and felt comfortable with the discharge plan and treatment plan. The patient will call their primary care physician within 24 hours to arrange follow-up and will return to the Emergency Department with any new, persistent or worsening symptoms. Discharge - Discharge Information Problems reviewed: Yes Clinical Impression/Diagnosis: Abdominal pain Qualifiers: Abdominal location: epigastric Qualified Code(s): R10.13 - Epigastric pain Condition: Stable Disposition: HOME - Admission No - Follow up/Referral Referrals: Ted Main MD [Primary Care Provider] - [facility] [place] [facility] [place] [Provider Group] - Patient Discharge Instructions Additional Instructions: Rest, drink lots of fluids: Teas, water, soups Orquidea angela, carbonated beverages for the bubbles May try peppermint teas Avoid heavy , spicy or fatty foods until symptoms have resolved Avoid contact with others until fevers and symptoms resolved Lots of handwashing and good hygiene Continue [id number] medications for symptomatic relief Tylenol or Motrin for fever and pain Followup with private physician in one to 2 days as needed Return to emergency department for worsened symptoms, fevers, dehydration - Post Discharge Activity
[2019-09-17] MEDS ORDERED: ACETAMINOPHEN 1000 MG/100 ML VIAL (NON FORMULARY) IVPB ONE (20:31)
[2019-09-17 20:47] LABS: BASO % 1.1 % (0-2.0); EOS % 1.4 % (0-4.5); HEMATOCRIT 46.1 % (35.4-49); HEMOGLOBIN 15.8 GM/dL (11.7-16.9); LYMPH % 43.5 % (8-40); MCH 28.7 pg (25.7-33.7); MCHC 34.3 g/dl (32.0-35.9); MEAN CELL VOLUME 83.8 fl (80-96); MONO % 6.7 % (3.8-10.2); NEUT % 47.3 % (42.8-82.8); PLATELET COUNT 206 K/MM3 (134-434); RDW 13.8 % (11.9-15.9)
[2019-09-17] MEDS ORDERED: ACETAMINOPHEN INJECTION 100 ML IVPB ONE (20:58)
[2019-09-17 20:59] LABS: URINE APPEARANCE CLEAR; URINE BILIRUBIN NEGATIVE (NEGATIVE); URINE COLOR YELLOW; URINE GLUCOSE (UA) NEGATIVE (NEGATIVE); URINE KETONE NEGATIVE (NEGATIVE); URINE LEUK ESTERASE NEGATIVE (NEGATIVE); URINE NITRITE NEGATIVE (NEGATIVE); URINE PROTEIN NEGATIVE (NEGATIVE)
[2019-09-17 21:21] LABS: ALBUMIN 4.3 g/dl (3.4-5.0); BILIRUBIN,TOTAL 0.5 mg/dL (0.2-1); CALCIUM 9.2 mg/dL (8.5-10.1); CREATININE 1.4 mg/dL (0.55-1.3); POTASSIUM 4.2 mmol/L (3.5-5.1); TOT PROT 7.9 g/dl (6.4-8.2)
[2019-09-17 22:11] VITALS: BP 114/76; PULSE 68; TEMP 97.8
--- NOTE | 2019-09-18 15:34 | EKG ---
Test Reason : Blood Pressure : / mmHG Vent. Rate : 063 BPM Atrial Rate : 063 BPM P-R Int : 158 ms QRS Dur : 090 ms QT Int : 388 ms P-R-T Axes : 071 062 038 degrees QTc Int : 397 ms POOR DATA QUALITY, INTERPRETATION MAY BE ADVERSELY AFFECTED NORMAL SINUS RHYTHM EARLY REPOLARIZATION WHEN COMPARED WITH ECG OF 27-JAN-2019 22:15, NO SIGNIFICANT CHANGE WAS FOUND Confirmed by ADRI SIMPSON MD ([id number]) on 09/18/2019 3:34:49 PM Referred By: Confirmed By:ADRI SIMPSON MD
== END 2019-09-17 22:12 | disposition home or self-care (01) ==
LOC: JER 18:36
PROC: 3E0337Z Introduction of Electrolytic and Water Balance Substance into Peripheral Vein, Percutaneous Approach (ICD-10-PCS; principal; 2019-09-17)
PROC: 3E033GC Introduction of Other Therapeutic Substance into Peripheral Vein, Percutaneous Approach (ICD-10-PCS; 2019-09-17)
PROC: 3E033NZ Introduction of Analgesics, Hypnotics, Sedatives into Peripheral Vein, Percutaneous Approach (ICD-10-PCS; 2019-09-17)
DX: R10.13 Epigastric pain (principal)
CPT/HCPCS: 36415; 80053; 81003; 82550; 82553; 83690; 84484; 85025; 93005; 93010; 99284-25; J0131; J7030